=== PATIENT | female | born 1945 | race Hispanic/Latino ===

== ENCOUNTER 2022-07-12 11:47 | Inpatient (IN) | payer MEDICARE ==
[~2022-07-12] VITALS: Ht 157.5 cm; Wt 146.2 kg
[~2022-07-12 11:47] MED LIST: AMITRIPTYLINE H10 MG PO; BENICAR20 MG PO; DECONGESTANT PO; GABAPENTIN300 MG PO; GABAPENTIN300 MG/6 M PO; TRAMADOL HCL50 M1 PO; Z.0.B-12250 MCG PO; Z.0.BYSTOLIC5 MG PO; Z.0.DIOVAN80 MG PO; Z.0.VICODIN 5-5001 E PO; Z.0.ZYRTEC5 MG PO; Z.1.VITAMIN D400 UNI PO; Z.2.HYDROCODON-ACE1
[2022-07-12 13:19] LABS: BASOPHILS # (AUTO) 0.1 (0.0-0.1); BASOPHILS % 0.6 % (0.0-1.0); EOSINOPHILS # (AUTO) 0.3 (0.0-0.4); EOSINOPHILS % 3.6 % (0.0-6.0); HEMATOCRIT 36.8 % (34.2-44.1); HEMOGLOBIN 11.1 g/dL (12.0-16.0); LYMPHOCYTES # (AUTO) 1.7 (1.0-3.2); LYMPHOCYTES % 19.5 % (18.0-39.1); MEAN CORPUSCULAR HGB CONC 30.2 g/dL (31-35); MEAN CORPUSCULAR VOLUME 92.7 fL (81-99); MONOCYTES # (AUTO) 0.7 (0.2-0.8); MONOCYTES % 7.9 % (4.4-11.3); NEUTROPHILS # (AUTO) 5.9 (2.1-6.9); NEUTROPHILS % 68.1 % (38.7-80.0); PLATELET COUNT 337 x10e3/uL (140-360); RED BLOOD COUNT 3.97 x10e6/uL (3.6-5.1); RED CELL DISTRIBUTION WIDTH 15.6 % (11.7-14.4)
[2022-07-12 13:31] LABS: ALANINE AMINOTRANSFERASE 18 IU/L (0-55); ALBUMIN 3.4 g/dL (3.5-5.0); ALBUMIN/GLOBULIN RATIO 0.8 (0.8-2.0); ALKALINE PHOSPHATASE 119 IU/L (40-150); ANION GAP 13.1 mmol/L (8-16); BLOOD UREA NITROGEN 17 mg/dL (7-26); BUN/CREATININE RATIO 20 (6-25); CALCIUM 9.8 mg/dL (8.4-10.2); CARBON DIOXIDE 30 mmol/L (22-29); CHLORIDE 99 mmol/L (98-107); CREATINE KINASE 31 IU/L (29-168); CREATININE, SERUM 0.85 mg/dL (0.57-1.11); GLUCOSE 104 mg/dL (74-118); POTASSIUM 4.1 mmol/L (3.5-5.1); SODIUM 138 mmol/L (136-145)
[2022-07-12] MEDS ORDERED: HYDROXYZINE HCL 25 MG TAB PO ONE (15:00)
[2022-07-12] MEDS ORDERED: ACETAMINOPHEN 325 MG TAB PO ONE (15:00)
[2022-07-12] MEDS ORDERED: METHYLPREDNISOLONE SOD SUCC 125 MG/2ML VIAL IV ONE (15:45)
[2022-07-12] MEDS ORDERED: ALBUTEROL/IPRATROPIUM 3 ML NEB NEB ONE (15:45)
[2022-07-12] MEDS ORDERED: SODIUM CHLORIDE FLUSH 10 ML SYR INJ PRN (16:15)
[2022-07-12] MEDS ORDERED: ONDANSETRON HCL INJ 2MG/ML 2ML 2 MG/ML VIAL IV PRN (16:15)
[2022-07-12] MEDS ORDERED: ALBUTEROL/IPRATROPIUM 3 ML NEB NEB SCH (19:00)
[2022-07-12] MEDS ORDERED: MAGNESIUM SULF 1GRAM/DEXTROSE 100 ML IV ONE (19:30)
[2022-07-12] MEDS ORDERED: ASPIRIN 325 MG TAB PO ONE (19:30)
[2022-07-12] MEDS: DOXYCYCLINE HYCLATE TABLET 100 MG TAB PO SCH (19:46)
[2022-07-12 21:30] VITALS: BP 154/142
[2022-07-12] MEDS ORDERED: DIAZEPAM5 MG PO (21:43)
[2022-07-12] MEDS ORDERED: BYSTOLIC10 MG PO (21:45)
[2022-07-12] MEDS ORDERED: FLUCONAZOLE100 MG PO (21:45)
[2022-07-12] MEDS ORDERED: NIFEDIPINE ER30 M1 PO (21:46)
[2022-07-12] MEDS ORDERED: ALLOPURINOL100 MG PO (21:47)
[2022-07-12] MEDS ORDERED: ELIQUIS5 MG PO (21:48)
[2022-07-12] MEDS ORDERED: FUROSEMIDE40 MG PO (21:49)
[2022-07-12] MEDS ORDERED: LEVOTHYROXINE50 MC1 PO (21:50)
[2022-07-12] MEDS ORDERED: LYRICA100 MG PO (21:50)
[2022-07-12] MEDS ORDERED: FLONASE ALLERG9.9 ML INH (21:51)
[2022-07-12] MEDS ORDERED: KETOROLAC TROMET5 ML OP (21:54)
[2022-07-12 21:55] VITALS: BP 101/56
[2022-07-12] MEDS: MELATONIN 3 MG TAB PO SCH (22:08)
[2022-07-12 22:30] VITALS: BP 125/58
[2022-07-12 23:00] VITALS: BP_SYST 125; BP_SYST 129; BP_DIAS 64; BP_DIAS 71
[2022-07-13] VITALS (7 sets, daily range): BP systolic 105–145; BP diastolic 55–78
[2022-07-13] MEDS: LEVALBUTEROL HCL SOLN NEBU 0.63 MG/3 ML NEB INH SCH ×4 (00:55→19:40)
[2022-07-13] MEDS: IPRATROPIUM BROMIDE 0.02% 2.5 ML NEB NEB SCH ×4 (00:55→19:40)
[2022-07-13 01:41] LABS: BACTERIA,URINE FEW /HPF; CLARITY,URINE CLEAR (CLEAR); COLOR,URINE YELLOW (YELLOW); EPITHELIAL CELLS,URINE FEW /LPF; KETONES,URINE NEGATIVE (NEGATIVE); LEUKOCYTE ESTERASE ,URINE NEGATIVE (NEGATIVE); NITRITE,URINE NEGATIVE (NEGATIVE); PROTEIN,URINE DIPSTICK NEGATIVE (NEGATIVE); RBC,URINE 0-5 /HPF (0-5); URINE UROBILINOGEN 0.2 mg/dL (0.2 - 1); WBC,URINE (MAN) 0-5 /HPF (0-5)
[2022-07-13 05:22] LABS: BASOPHILS % 0.2 % (0.0-1.0); HEMATOCRIT 36.6 % (34.2-44.1); HEMOGLOBIN 10.6 g/dL (12.0-16.0); LYMPHOCYTES # (AUTO) 0.7 (1.0-3.2); LYMPHOCYTES % 10.9 % (18.0-39.1); MEAN CORPUSCULAR HEMOGLOBIN 27.7 pg (28-32); MEAN CORPUSCULAR VOLUME 95.8 fL (81-99); MONOCYTES # (AUTO) 0.1 (0.2-0.8); MONOCYTES % 1.1 % (4.4-11.3); NEUTROPHILS # (AUTO) 5.4 (2.1-6.9); NEUTROPHILS % 87.5 % (38.7-80.0); PLATELET COUNT 292 x10e3/uL (140-360); RED BLOOD COUNT 3.82 x10e6/uL (3.6-5.1)
[2022-07-13 05:52] LABS: ALBUMIN 2.9 g/dL (3.5-5.0); ALBUMIN/GLOBULIN RATIO 0.7 (0.8-2.0); ANION GAP 11.3 mmol/L (8-16); CALCIUM 9.4 mg/dL (8.4-10.2); CREATININE, SERUM 0.77 mg/dL (0.57-1.11); POTASSIUM 4.3 mmol/L (3.5-5.1)
[2022-07-13] MEDS: LEVOTHYROXINE SODIUM 50 MCG TAB PO SCH (08:05)
[2022-07-13] MEDS: ALLOPURINOL 100 MG TAB PO SCH ×2 (08:58→17:47)
[2022-07-13] MEDS: TRAMADOL HCL 50 MG TAB PO PRN ×2 (08:59→20:00)
[2022-07-13] MEDS: PREGABALIN 50 MG CAP PO SCH ×3 (08:59→20:05)
[2022-07-13] MEDS: APIXABAN 5 MG TABLET PO SCH ×2 (08:59→17:46)
[2022-07-13] MEDS: DOXYCYCLINE HYCLATE TABLET 100 MG TAB PO SCH ×2 (08:59→17:46)
[2022-07-13] MEDS: PREDNISONE 20 MG TAB PO SCH (08:59)
[2022-07-13] MEDS ORDERED: FUROSEMIDE 40 MG TAB PO SCH (09:00)
[2022-07-13] MEDS ORDERED: ASPIRIN 325 MG TAB PO ONE (09:00)
[2022-07-13] MEDS: METOPROLOL TARTRATE 25 MG TAB PO SCH ×2 (09:04→17:48)
[2022-07-13] MEDS ORDERED: MAGNESIUM SULFATE 2GM/50ML 50 ML IV ONE (10:45)
[2022-07-13] MEDS ORDERED: SODIUM CHLORIDE 0.9% 250ML 250 ML ONE ×2 (11:20→13:11)
[2022-07-13] MEDS: AMIODARONE HCL 200 MG TAB PO SCH (17:47)
[2022-07-13] MEDS: FUROSEMIDE INJ 10 MG/ML 4 ML VIAL IV SCH (17:47)
[2022-07-13] MEDS ORDERED: GUAIFENESIN/CODEINE 5 ML LIQD PO PRN (19:00)
[2022-07-13] MEDS: MELATONIN 3 MG TAB PO SCH (20:02)
[2022-07-13] MEDS: AMITRIPTYLINE HCL 25 MG TAB PO SCH (20:03)
[2022-07-14] VITALS (7 sets, daily range): BP systolic 130–149; BP diastolic 68–94
[2022-07-14] MEDS: IPRATROPIUM BROMIDE 0.02% 2.5 ML NEB NEB SCH ×4 (00:30→19:12)
[2022-07-14] MEDS: LEVALBUTEROL HCL SOLN NEBU 0.63 MG/3 ML NEB INH SCH ×4 (00:30→19:12)
[2022-07-14] MEDS: TRAMADOL HCL 50 MG TAB PO PRN ×3 (01:18→21:12)
[2022-07-14] MEDS: PREGABALIN 50 MG CAP PO SCH ×4 (01:35→21:10)
[2022-07-14] MEDS: ACETAMINOPHEN 325 MG TAB PO PRN ×2 (04:26→21:10)
[2022-07-14 07:04] LABS: BASOPHILS % 0.1 % (0.0-1.0); EOSINOPHILS % 0.1 % (0.0-6.0); HEMATOCRIT 34.1 % (34.2-44.1); LYMPHOCYTES # (AUTO) 1.6 (1.0-3.2); LYMPHOCYTES % 13.3 % (18.0-39.1); MEAN CORPUSCULAR HEMOGLOBIN 28.1 pg (28-32); MEAN CORPUSCULAR HGB CONC 29.3 g/dL (31-35); MEAN CORPUSCULAR VOLUME 95.8 fL (81-99); MONOCYTES # (AUTO) 1.3 (0.2-0.8); MONOCYTES % 11.1 % (4.4-11.3); NEUTROPHILS # (AUTO) 8.9 (2.1-6.9); NEUTROPHILS % 75.1 % (38.7-80.0); PLATELET COUNT 320 x10e3/uL (140-360); RED BLOOD COUNT 3.56 x10e6/uL (3.6-5.1)
[2022-07-14 07:31] LABS: ALBUMIN/GLOBULIN RATIO 0.7 (0.8-2.0); ANION GAP 10.9 mmol/L (8-16); CALCIUM 9.7 mg/dL (8.4-10.2); CREATININE, SERUM 0.93 mg/dL (0.57-1.11); POTASSIUM 3.9 mmol/L (3.5-5.1)
[2022-07-14] MEDS: METOPROLOL TARTRATE 25 MG TAB PO SCH ×2 (09:13→17:38)
[2022-07-14] MEDS: ALLOPURINOL 100 MG TAB PO SCH ×2 (09:13→17:37)
[2022-07-14] MEDS: APIXABAN 5 MG TABLET PO SCH ×2 (09:13→17:37)
[2022-07-14] MEDS: AMIODARONE HCL 200 MG TAB PO SCH ×2 (09:13→17:37)
[2022-07-14] MEDS: PREDNISONE 20 MG TAB PO SCH (09:13)
[2022-07-14] MEDS: DOXYCYCLINE HYCLATE TABLET 100 MG TAB PO SCH ×2 (09:13→17:37)
[2022-07-14] MEDS: FUROSEMIDE INJ 10 MG/ML 4 ML VIAL IV SCH ×2 (09:14→17:36)
[2022-07-14] MEDS: LEVOTHYROXINE SODIUM 50 MCG TAB PO SCH (09:36)
[2022-07-14] MEDS ORDERED: FUROSEMIDE INJ 10 MG/ML 4 ML VIAL IV ONE (11:45)
[2022-07-14] MEDS ORDERED: GUAIFENESIN/CODEINE 5 ML LIQD PO PRN (15:00)
[2022-07-14] MEDS: AMITRIPTYLINE HCL 25 MG TAB PO SCH (21:10)
[2022-07-14] MEDS: MELATONIN 3 MG TAB PO SCH (21:12)
[2022-07-15] VITALS (9 sets, daily range): BP systolic 114–146; BP diastolic 46–77
[2022-07-15] MEDS: LEVALBUTEROL HCL SOLN NEBU 0.63 MG/3 ML NEB INH SCH ×4 (00:40→13:27)
[2022-07-15] MEDS: IPRATROPIUM BROMIDE 0.02% 2.5 ML NEB NEB SCH ×4 (00:40→13:27)
[2022-07-15] MEDS: TRAMADOL HCL 50 MG TAB PO PRN ×2 (05:10→18:49)
[2022-07-15] MEDS: LEVOTHYROXINE SODIUM 50 MCG TAB PO SCH (08:37)
[2022-07-15] MEDS: APIXABAN 5 MG TABLET PO SCH ×2 (08:37→17:28)
[2022-07-15] MEDS: METOPROLOL TARTRATE 25 MG TAB PO SCH ×2 (08:38→17:28)
[2022-07-15] MEDS: DOXYCYCLINE HYCLATE TABLET 100 MG TAB PO SCH ×2 (08:38→17:28)
[2022-07-15] MEDS: AMIODARONE HCL 200 MG TAB PO SCH ×2 (08:38→17:28)
[2022-07-15] MEDS: PREGABALIN 50 MG CAP PO SCH ×3 (08:38→21:12)
[2022-07-15] MEDS: PREDNISONE 20 MG TAB PO SCH (08:38)
[2022-07-15] MEDS: FUROSEMIDE INJ 10 MG/ML 4 ML VIAL IV SCH ×2 (08:39→17:28)
[2022-07-15] MEDS: ALLOPURINOL 100 MG TAB PO SCH ×2 (08:41→17:28)
[2022-07-15] MEDS ORDERED: ONDANSETRON HCL 4 MG ORAL DISINTEGRATING TAB PO PRN (14:15)
[2022-07-15] MEDS: MELATONIN 3 MG TAB PO SCH (21:12)
[2022-07-15] MEDS: AMITRIPTYLINE HCL 25 MG TAB PO SCH (21:12)
[2022-07-15] MEDS: ACETAMINOPHEN 325 MG TAB PO PRN (23:30)
[2022-07-16] VITALS (7 sets, daily range): BP systolic 125–147; BP diastolic 62–91
[2022-07-16] MEDS: LEVALBUTEROL HCL SOLN NEBU 0.63 MG/3 ML NEB INH SCH ×4 (01:05→20:15)
[2022-07-16] MEDS: IPRATROPIUM BROMIDE 0.02% 2.5 ML NEB NEB SCH ×4 (01:05→20:15)
[2022-07-16 05:00] LABS: BASOPHILS % 0.2 % (0.0-1.0); EOSINOPHILS % 0.4 % (0.0-6.0); HEMATOCRIT 32.4 % (34.2-44.1); LYMPHOCYTES # (AUTO) 2.1 (1.0-3.2); LYMPHOCYTES % 19.1 % (18.0-39.1); MEAN CORPUSCULAR HEMOGLOBIN 27.9 pg (28-32); MEAN CORPUSCULAR HGB CONC 30.9 g/dL (31-35); MEAN CORPUSCULAR VOLUME 90.3 fL (81-99); MONOCYTES # (AUTO) 1.1 (0.2-0.8); MONOCYTES % 9.8 % (4.4-11.3); NEUTROPHILS # (AUTO) 7.6 (2.1-6.9); PLATELET COUNT 302 x10e3/uL (140-360); RED BLOOD COUNT 3.59 x10e6/uL (3.6-5.1); RED CELL DISTRIBUTION WIDTH 15.4 % (11.7-14.4)
[2022-07-16 05:18] LABS: ANION GAP 13.9 mmol/L (8-16); CALCIUM 9.5 mg/dL (8.4-10.2); CREATININE, SERUM 0.97 mg/dL (0.57-1.11); POTASSIUM 3.9 mmol/L (3.5-5.1)
[2022-07-16] MEDS: LEVOTHYROXINE SODIUM 50 MCG TAB PO SCH (07:30)
[2022-07-16] MEDS ORDERED: REGADENOSON 0.4 MG/5 ML SYR IV ONE (08:48)
[2022-07-16] MEDS: PREGABALIN 50 MG CAP PO SCH ×3 (09:00→22:24)
[2022-07-16] MEDS: FUROSEMIDE INJ 10 MG/ML 4 ML VIAL IV SCH ×2 (09:00→18:17)
[2022-07-16] MEDS: AMIODARONE HCL 200 MG TAB PO SCH ×2 (09:00→18:18)
[2022-07-16] MEDS: PREDNISONE 20 MG TAB PO SCH (09:00)
[2022-07-16] MEDS: APIXABAN 5 MG TABLET PO SCH ×2 (09:00→18:19)
[2022-07-16] MEDS: METOPROLOL TARTRATE 25 MG TAB PO SCH ×2 (09:00→18:18)
[2022-07-16] MEDS: ALLOPURINOL 100 MG TAB PO SCH ×2 (09:00→18:19)
[2022-07-16] MEDS: DOXYCYCLINE HYCLATE TABLET 100 MG TAB PO SCH ×2 (09:00→18:18)
[2022-07-16] MEDS: TRAMADOL HCL 50 MG TAB PO PRN ×2 (11:08→22:24)
[2022-07-16] MEDS: MELATONIN 3 MG TAB PO SCH (22:23)
[2022-07-16] MEDS: AMITRIPTYLINE HCL 25 MG TAB PO SCH (22:24)
[2022-07-17 01:42] VITALS: BP 118/59
[2022-07-17] MEDS: TRAMADOL HCL 50 MG TAB PO PRN (05:37)
[2022-07-17 05:52] VITALS: BP 130/60
[2022-07-17] MEDS: IPRATROPIUM BROMIDE 0.02% 2.5 ML NEB NEB SCH (06:43)
[2022-07-17] MEDS: LEVALBUTEROL HCL SOLN NEBU 0.63 MG/3 ML NEB INH SCH (06:43)
[2022-07-17 08:22] VITALS: BP 122/73
[2022-07-17 08:42] VITALS: BP 122/73
[2022-07-17] MEDS: FUROSEMIDE INJ 10 MG/ML 4 ML VIAL IV SCH (08:44)
[2022-07-17] MEDS: PREDNISONE 20 MG TAB PO SCH (08:44)
[2022-07-17] MEDS: AMIODARONE HCL 200 MG TAB PO SCH (08:44)
[2022-07-17] MEDS: DOXYCYCLINE HYCLATE TABLET 100 MG TAB PO SCH (08:44)
[2022-07-17] MEDS: ALLOPURINOL 100 MG TAB PO SCH (08:45)
[2022-07-17] MEDS: PREGABALIN 50 MG CAP PO SCH (08:45)
[2022-07-17] MEDS: APIXABAN 5 MG TABLET PO SCH (08:45)
[2022-07-17] MEDS: LEVOTHYROXINE SODIUM 50 MCG TAB PO SCH (08:46)
[2022-07-17] MEDS: METOPROLOL TARTRATE 25 MG TAB PO SCH (08:46)
[2022-07-17] MEDS ORDERED: AZITHROMYCIN 250 MG TAB PO SCH (09:00)
[2022-07-17] MEDS ORDERED: AMIODARONE HCL200 MG PO ×2 (09:40→09:57)
[2022-07-17] MEDS ORDERED: LOPRESSOR25 MG PO ×2 (09:40→09:57)
[2022-07-17 12:06] VITALS: BP 139/66
== END 2022-07-17 14:17 | disposition home or self-care (01) | DRG 291 ==
LOC: ER 12:11 → ERHOLD 16:14 → ICU 21:00 → MED/SURG2 07-13 10:08
PROVIDERS: ADMIT Internal Medicine; ATTEND Internal Medicine
DX: I11.0 Hypertensive heart disease with heart failure (principal); I50.33 Acute on chronic diastolic (congestive) heart failure; J96.21 Acute and chronic respiratory failure with hypoxia; E66.2 Morbid (severe) obesity with alveolar hypoventilation; Z68.43 Body mass index [BMI] 50.0-59.9, adult; J44.0 Chronic obstructive pulmonary disease with (acute) lower respiratory infection; E66.01 Morbid (severe) obesity due to excess calories; Z86.711 Personal history of pulmonary embolism; D64.9 Anemia, unspecified; Z20.822 Contact with and (suspected) exposure to COVID-19; R30.0 Dysuria; Z99.81 Dependence on supplemental oxygen; G47.33 Obstructive sleep apnea (adult) (pediatric); J20.9 Acute bronchitis, unspecified; E11.9 Type 2 diabetes mellitus without complications; M17.0 Bilateral primary osteoarthritis of knee; Z79.4 Long term (current) use of insulin
CPT/HCPCS: 0223U; 36415; 70450; 71045; 78451; 78580; 80048; 80053; 81001; 82550; 82553; 82948; 83735; 83880; 84484; 85025; 93005; 93017; 93306; 94640; 94799; 99252; 99285; A9502; A9540; J0456; J1940; J2930; J3410; J3475; J7050; J7512; Q0162

== ENCOUNTER 2022-09-30 22:34 | Inpatient (IN) | payer MEDICARE ==
[~2022-09-30] VITALS: Ht 162.6 cm; Wt 139.7 kg
[~2022-09-30 22:34] MED LIST changes: +ALLOPURINOL100 MG PO; +AMIODARONE HCL200 MG PO; +BYSTOLIC10 MG PO; +DIAZEPAM5 MG PO; +ELIQUIS5 MG PO; +FLONASE ALLERG9.9 ML INH; +FLUCONAZOLE100 MG PO; +FUROSEMIDE40 MG PO; +KETOROLAC TROMET5 ML OP; +LEVOTHYROXINE50 MC1 PO; +LOPRESSOR25 MG PO; +LYRICA100 MG PO; +NIFEDIPINE ER30 M1 PO
[2022-09-30 23:04] LABS: BASOPHILS % 0.1 % (0.0-1.0); EOSINOPHILS # (AUTO) 0.1 (0.0-0.4); EOSINOPHILS % 0.6 % (0.0-6.0); HEMATOCRIT 39.6 % (34.2-44.1); HEMOGLOBIN 12.4 g/dL (12.0-16.0); LYMPHOCYTES % 8.3 % (18.0-39.1); MEAN CORPUSCULAR HEMOGLOBIN 28.1 pg (28-32); MEAN CORPUSCULAR HGB CONC 31.3 g/dL (31-35); MEAN CORPUSCULAR VOLUME 89.8 fL (81-99); MONOCYTES # (AUTO) 0.8 (0.2-0.8); MONOCYTES % 6.5 % (4.4-11.3); NEUTROPHILS % 84.1 % (38.7-80.0); PLATELET COUNT 233 x10e3/uL (140-360); RED BLOOD COUNT 4.41 x10e6/uL (3.6-5.1); RED CELL DISTRIBUTION WIDTH 17.4 % (11.7-14.4)
[2022-09-30 23:20] LABS: CLARITY,URINE SL CLOUDY (CLEAR); COLOR,URINE AMBER (YELLOW); KETONES,URINE TRACE (NEGATIVE); LEUKOCYTE ESTERASE ,URINE NEGATIVE (NEGATIVE); NITRITE,URINE NEGATIVE (NEGATIVE); PROTEIN,URINE DIPSTICK 2+ (NEGATIVE); URINE UROBILINOGEN 0.2 mg/dL (0.2 - 1)
[2022-09-30 23:24] LABS: ALBUMIN 3.5 g/dL (3.5-5.0); ALBUMIN/GLOBULIN RATIO 0.9 (0.8-2.0); ANION GAP 16.9 mmol/L (8-16); CALCIUM 9.7 mg/dL (8.4-10.2); CREATININE, SERUM 1.08 mg/dL (0.57-1.11); POTASSIUM 4.9 mmol/L (3.5-5.1)
[2022-09-30 23:25] LABS: AMORPHOUS SEDIMENT,URINE MODERATE (FEW); BACTERIA,URINE FEW /HPF; EPITHELIAL CELLS,URINE MODERATE /LPF; RBC,URINE 0-5 /HPF (0-5); WBC,URINE (MAN) 0-5 /HPF (0-5)
[2022-09-30 23:30] LABS: CREATINE KINASE MB 2.4 ng/mL (0-5.0)
[2022-09-30] MEDS ORDERED: Morphine 4mg INJECTION 4 MG/ML INJ IV STA (23:33)
[2022-09-30] MEDS ORDERED: ONDANSETRON HCL INJ 2MG/ML 2ML 2 MG/ML VIAL IV STA (23:33)
[2022-09-30] MEDS ORDERED: SODIUM CHLORIDE 0.9% 1000ML 1,000 ML IV STA (23:33)
[2022-09-30] MEDS ORDERED: Morphine 4mg INJECTION 4 MG/ML INJ ONE (23:43)
[2022-09-30] MEDS ORDERED: SODIUM CHLORIDE 0.9% 1000ML 1,000 ML ONE (23:44)
[2022-09-30] MEDS ORDERED: ONDANSETRON HCL INJ 2MG/ML 2ML 2 MG/ML VIAL ONE (23:44)
[2022-10-01] MEDS ORDERED: DICYCLOMINE HCL 20 MG/2 ML VIAL IM ONE ×2 (00:11→00:15)
[2022-10-01] MEDS ORDERED: PROMETHAZINE 25MG/ NS 50ML (IV) IV STA (00:27)
[2022-10-01] MEDS ORDERED: PROMETHAZINE 25MG/SOD CHL 0.9% 50 ML IV ONE (00:31)
[2022-10-01] MEDS ORDERED: BENZOCAINE 20% SPR 60 ML CAN ONE (01:16)
[2022-10-01] MEDS ORDERED: PIPERACILLIN/TAZOBACTAM 3.375 GM VIAL ONE (01:32)
[2022-10-01] MEDS: SODIUM CHLORIDE 0.9% 1000ML 1,000 ML IV SCH ×4 (01:39→22:06)
[2022-10-01] MEDS ORDERED: HYDRALAZINE HCL 20 MG/ML VIAL IV PRN (02:45)
[2022-10-01] MEDS: Morphine 4mg INJECTION 4 MG/ML INJ IV PRN ×4 (04:47→18:25)
[2022-10-01] MEDS: ONDANSETRON HCL INJ 2MG/ML 2ML 2 MG/ML VIAL IV PRN ×3 (04:47→14:16)
[2022-10-01 12:00] VITALS: BP 127/93
[2022-10-01 14:33] VITALS: BP 127/93
[2022-10-01 16:00] VITALS: BP 120/58
[2022-10-01 20:00] VITALS: BP 142/65
[2022-10-01] MEDS: BISACODYL 10 MG SUPP PR SCH (21:04)
[2022-10-02] VITALS (7 sets, daily range): BP systolic 123–138; BP diastolic 59–64
[2022-10-02] MEDS: Morphine 4mg INJECTION 4 MG/ML INJ IV PRN ×2 (04:00→11:19)
[2022-10-02] MEDS: ONDANSETRON HCL INJ 2MG/ML 2ML 2 MG/ML VIAL IV PRN (04:00)
[2022-10-02 04:57] LABS: BASOPHILS % 0.2 % (0.0-1.0); EOSINOPHILS # (AUTO) 0.1 (0.0-0.4); HEMATOCRIT 33.2 % (34.2-44.1); HEMOGLOBIN 10.2 g/dL (12.0-16.0); LYMPHOCYTES % 14.4 % (18.0-39.1); MEAN CORPUSCULAR HEMOGLOBIN 28.2 pg (28-32); MEAN CORPUSCULAR HGB CONC 30.7 g/dL (31-35); MEAN CORPUSCULAR VOLUME 91.7 fL (81-99); MONOCYTES # (AUTO) 0.7 (0.2-0.8); MONOCYTES % 10.7 % (4.4-11.3); NEUTROPHILS # (AUTO) 4.8 (2.1-6.9); NEUTROPHILS % 72.2 % (38.7-80.0); PLATELET COUNT 203 x10e3/uL (140-360); RED BLOOD COUNT 3.62 x10e6/uL (3.6-5.1); RED CELL DISTRIBUTION WIDTH 17.9 % (11.7-14.4)
[2022-10-02 05:26] LABS: B-TYPE NATRIURETIC PEPTIDE2 < 10.0 pg/mL (0-100)
[2022-10-02 05:28] LABS: ALBUMIN 2.7 g/dL (3.5-5.0); ALBUMIN/GLOBULIN RATIO 0.9 (0.8-2.0); CALCIUM 8.5 mg/dL (8.4-10.2); CREATININE, SERUM 0.84 mg/dL (0.57-1.11)
[2022-10-02] MEDS: SODIUM CHLORIDE 0.9% 1000ML 1,000 ML IV SCH ×2 (06:13→15:37)
[2022-10-02] MEDS: BISACODYL 10 MG SUPP PR SCH ×2 (08:00→21:00)
[2022-10-02] MEDS ORDERED: BISACODYL 10 MG SUPP PR ONE (12:30)
[2022-10-02] MEDS: Morphine 2mg Syringe 2 MG/ML SYR IV PRN ×2 (18:33→22:51)
[2022-10-02] MEDS ORDERED: MAGNESIUM HYDROXIDE 30 ML UDC PO ONE (18:35)
[2022-10-03] VITALS (8 sets, daily range): BP systolic 127–158; BP diastolic 63–86
[2022-10-03] MEDS: Morphine 2mg Syringe 2 MG/ML SYR IV PRN ×5 (02:44→21:30)
[2022-10-03] MEDS: SODIUM CHLORIDE 0.9% 1000ML 1,000 ML IV SCH (02:45)
[2022-10-03] MEDS ORDERED: KETOROLAC TROMETHAMINE 30 MG/ML VIAL IV ONE (05:00)
[2022-10-03 05:23] LABS: BASOPHILS % 0.4 % (0.0-1.0); EOSINOPHILS # (AUTO) 0.2 (0.0-0.4); EOSINOPHILS % 2.2 % (0.0-6.0); HEMOGLOBIN 9.9 g/dL (12.0-16.0); LYMPHOCYTES # (AUTO) 1.1 (1.0-3.2); MEAN CORPUSCULAR HEMOGLOBIN 27.8 pg (28-32); MEAN CORPUSCULAR HGB CONC 29.1 g/dL (31-35); MEAN CORPUSCULAR VOLUME 95.5 fL (81-99); MONOCYTES # (AUTO) 0.6 (0.2-0.8); MONOCYTES % 7.8 % (4.4-11.3); NEUTROPHILS # (AUTO) 5.4 (2.1-6.9); NEUTROPHILS % 74.2 % (38.7-80.0); PLATELET COUNT 189 x10e3/uL (140-360); RED BLOOD COUNT 3.56 x10e6/uL (3.6-5.1)
[2022-10-03 05:46] LABS: ALBUMIN 2.7 g/dL (3.5-5.0); ALBUMIN/GLOBULIN RATIO 0.8 (0.8-2.0); ANION GAP 12.1 mmol/L (8-16); CALCIUM 8.9 mg/dL (8.4-10.2); CREATININE, SERUM 0.75 mg/dL (0.57-1.11); MAGNESIUM 1.9 MG/DL (1.3-2.1); POTASSIUM 4.1 mmol/L (3.5-5.1)
[2022-10-03] MEDS ORDERED: DEXTROSE 50% SYRINGE 50 ML IV PRN (08:45)
[2022-10-03] MEDS: DEXTROSE 5%/0.45% SOD CHL 1,000 ML IV SCH ×2 (09:25→21:36)
[2022-10-03] MEDS: BISACODYL 10 MG SUPP PR SCH (09:27)
[2022-10-03] MEDS: ACETAMINOPHEN 1000 MG/100 ML IV PRN ×2 (10:30→20:50)
[2022-10-03] MEDS: NYSTATIN 15 GM POWDER UD BTL TOP SCH ×2 (15:35→21:33)
[2022-10-04] MEDS: DEXTROSE 5%/0.45% SOD CHL 1,000 ML IV SCH ×2 (01:30→12:02)
[2022-10-04] MEDS: Morphine 2mg Syringe 2 MG/ML SYR IV PRN ×4 (01:46→16:08)
[2022-10-04 01:56] VITALS: BP 143/69
[2022-10-04 05:42] VITALS: BP 167/86
[2022-10-04 08:00] VITALS: BP 161/65
[2022-10-04 08:12] VITALS: BP 161/65
[2022-10-04] MEDS: ACETAMINOPHEN 1000 MG/100 ML IV PRN (08:45)
[2022-10-04] MEDS: ONDANSETRON HCL INJ 2MG/ML 2ML 2 MG/ML VIAL IV PRN (10:23)
[2022-10-04] MEDS ORDERED: DIAZEPAM 5 MG TAB PO PRN (10:45)
[2022-10-04] MEDS ORDERED: FLUCONAZOLE 100 MG TAB PO ONE (11:30)
[2022-10-04] MEDS: AMIODARONE HCL 200 MG TAB PO SCH ×2 (11:56→19:41)
[2022-10-04] MEDS: FUROSEMIDE 40 MG TAB PO SCH ×2 (11:57→19:41)
[2022-10-04 11:58] VITALS: BP 136/62
[2022-10-04] MEDS: APIXABAN 5 MG TABLET PO SCH ×2 (11:59→19:41)
[2022-10-04] MEDS ORDERED: PREGABALIN 50 MG CAP PO SCH (15:00)
[2022-10-04 16:04] VITALS: BP 146/50
[2022-10-04] MEDS ORDERED: ALLOPURINOL 100 MG TAB PO SCH (17:00)
[2022-10-04] MEDS ORDERED: APIXABAN 5 MG TABLET PO SCH (17:00)
[2022-10-04] MEDS ORDERED: AMIODARONE HCL 200 MG TAB PO SCH (17:00)
[2022-10-04] MEDS ORDERED: TRAMADOL HCL 50 MG TAB PO SCH (17:00)
[2022-10-04] MEDS ORDERED: METOPROLOL TARTRATE 25 MG TAB PO SCH (17:00)
[2022-10-04] MEDS ORDERED: FUROSEMIDE 40 MG TAB PO SCH (17:00)
[2022-10-04] MEDS ORDERED: DULCOLAX10 MG PR (18:32)
[2022-10-04] MEDS ORDERED: DICYCLOMINE HCL20 MG PO (18:32)
[2022-10-04] MEDS ORDERED: SENOKOT-S TABL1 EACH PO (18:32)
[2022-10-04] MEDS ORDERED: NYAMYC15 GM TOP (18:32)
[2022-10-04] MEDS ORDERED: SENNA-S TABLET PO SCH (18:45)
[2022-10-04] MEDS ORDERED: AMITRIPTYLINE HCL 25 MG TAB PO SCH (21:00)
[2022-10-05] MEDS ORDERED: LEVOTHYROXINE SODIUM 50 MCG TAB PO SCH (06:00)
[2022-10-05] MEDS ORDERED: OLMESARTAN 20 MG TAB PO SCH (09:00)
== END 2022-10-04 20:45 | disposition home or self-care (01) | DRG 388 ==
LOC: ER 22:47 → ERHOLD 10-01 01:13 → MED/SURG3 10-01 13:12
PROVIDERS: ADMIT Internal Medicine; ATTEND Internal Medicine
PROC: 8E0ZXY6 Isolation (ICD-10-PCS; principal; 2022-10-01)
PROC: 0D9670Z Drainage of Stomach with Drainage Device, Via Natural or Artificial Opening (ICD-10-PCS; 2022-10-01)
DX: K56.609 Unspecified intestinal obstruction, unspecified as to partial versus complete obstruction (principal); U07.1 COVID-19; Z68.43 Body mass index [BMI] 50.0-59.9, adult; I50.32 Chronic diastolic (congestive) heart failure; J96.11 Chronic respiratory failure with hypoxia; E66.2 Morbid (severe) obesity with alveolar hypoventilation; E11.9 Type 2 diabetes mellitus without complications; I11.0 Hypertensive heart disease with heart failure; I25.10 Atherosclerotic heart disease of native coronary artery without angina pectoris; D64.9 Anemia, unspecified; F41.9 Anxiety disorder, unspecified; R00.0 Tachycardia, unspecified; N28.89 Other specified disorders of kidney and ureter; K57.30 Diverticulosis of large intestine without perforation or abscess without bleeding; J43.9 Emphysema, unspecified; K46.9 Unspecified abdominal hernia without obstruction or gangrene; K21.9 Gastro-esophageal reflux disease without esophagitis; Z90.49 Acquired absence of other specified parts of digestive tract; Z99.81 Dependence on supplemental oxygen; Z85.828 Personal history of other malignant neoplasm of skin
CPT/HCPCS: 36415; 71045; 74018; 74019; 74022; 74176; 80053; 81001; 82550; 82553; 82948; 83036; 83690; 83735; 83880; 84443; 84484; 85025; 93005; 94799; 96360; 96361; 99284; J1885; J2270; J2405; J2543; J2550; J7030; J7799

== ENCOUNTER 2022-10-16 05:19 | Observation (INO) | payer MEDICARE ==
[~2022-10-16] VITALS: Ht 162.6 cm; Wt 140.0 kg
[~2022-10-16 05:19] MED LIST changes: +DICYCLOMINE HCL20 MG PO; +DULCOLAX10 MG PR; +NYAMYC15 GM TOP; +SENOKOT-S TABL1 EACH PO
[2022-10-16] MEDS ORDERED: SODIUM CHLORIDE 0.9% 1000ML 1,000 ML IV STA (05:21)
[2022-10-16] MEDS ORDERED: ACETAMINOPHEN 325 MG TAB PO STA (05:21)
[2022-10-16 05:56] LABS: BASOPHILS % 0.3 % (0.0-1.0); EOSINOPHILS # (AUTO) 0.4 (0.0-0.4); EOSINOPHILS % 6.5 % (0.0-6.0); HEMOGLOBIN 10.7 g/dL (12.0-16.0); LYMPHOCYTES # (AUTO) 1.8 (1.0-3.2); LYMPHOCYTES % 27.8 % (18.0-39.1); MEAN CORPUSCULAR HEMOGLOBIN 28.5 pg (28-32); MEAN CORPUSCULAR HGB CONC 29.7 g/dL (31-35); MEAN CORPUSCULAR VOLUME 95.7 fL (81-99); MONOCYTES # (AUTO) 0.6 (0.2-0.8); MONOCYTES % 9.5 % (4.4-11.3); NEUTROPHILS # (AUTO) 3.5 (2.1-6.9); NEUTROPHILS % 55.7 % (38.7-80.0); PLATELET COUNT 263 x10e3/uL (140-360); RED BLOOD COUNT 3.76 x10e6/uL (3.6-5.1); RED CELL DISTRIBUTION WIDTH 18.6 % (11.7-14.4)
[2022-10-16 06:18] LABS: ALBUMIN 3.1 g/dL (3.5-5.0); ALBUMIN/GLOBULIN RATIO 0.8 (0.8-2.0); ANION GAP 13.8 mmol/L (8-16); CREATININE, SERUM 0.91 mg/dL (0.57-1.11); POTASSIUM 4.8 mmol/L (3.5-5.1)
[2022-10-16 06:24] LABS: CREATINE KINASE MB 0.7 ng/mL (0-5.0)
[2022-10-16 06:40] LABS: CLARITY,URINE CLEAR (CLEAR); COLOR,URINE YELLOW (YELLOW); KETONES,URINE NEGATIVE (NEGATIVE); LEUKOCYTE ESTERASE ,URINE NEGATIVE (NEGATIVE); NITRITE,URINE NEGATIVE (NEGATIVE); PROTEIN,URINE DIPSTICK 1+ (NEGATIVE); URINE UROBILINOGEN 0.2 mg/dL (0.2 - 1)
[2022-10-16 06:43] LABS: BACTERIA,URINE FEW /HPF; EPITHELIAL CELLS,URINE FEW /LPF; RBC,URINE 0-5 /HPF (0-5); WBC,URINE (MAN) 0-5 /HPF (0-5)
[2022-10-16] MEDS: Vancomycin IV 1 GM in SODIUM CHLORIDE 0.9% 250ML 250 ML IV SCH ×2 (06:56→18:23)
[2022-10-16] MEDS ORDERED: ONDANSETRON HCL INJ 2MG/ML 2ML 2 MG/ML VIAL IV PRN (07:15)
[2022-10-16] MEDS ORDERED: DEXTROSE 50% SYRINGE 50 ML IV PRN (08:15)
[2022-10-16] MEDS: SENNOSIDES 8.6 MG TAB PO SCH (09:04)
[2022-10-16] MEDS: DOCUSATE SODIUM 100 MG CAP PO SCH (09:05)
[2022-10-16] MEDS: APIXABAN 5 MG TABLET PO SCH ×2 (09:05→17:19)
[2022-10-16 09:55] VITALS: PULSE 91; RESP 26; O2SAT 99
[2022-10-16] MEDS: INSULIN LISPRO 100 UNIT/1 ML 3ML VIAL SQ SCH ×3 (11:30→19:54)
[2022-10-16 12:01] LABS: CREATINE KINASE MB 0.6 ng/mL (0-5.0)
[2022-10-16 16:00] VITALS: BP 136/116; PULSE 93; RESP 20; TEMP 98.4; O2SAT 91
[2022-10-16 16:15] VITALS: BP 136/116; PULSE 93; RESP 20; TEMP 98.4; O2SAT 91
[2022-10-16 16:30] VITALS: BP 136/116; PULSE 93; RESP 20; TEMP 98.4; O2SAT 93
[2022-10-16] MEDS ORDERED: ENOXAPARIN SOD INJ 40 MG/0.4 ML SYR SC SCH (17:00)
[2022-10-16] MEDS ORDERED: SODIUM CHLORIDE 0.9% 250ML 250 ML ONE (17:16)
[2022-10-16] MEDS: TRIAMCINOLONE 0.1% OINTMENT 15 GM TUBE TP SCH (18:00)
[2022-10-16 18:40] LABS: CREATINE KINASE MB 0.6 ng/mL (0-5.0)
[2022-10-16 20:00] VITALS: BP 130/34; PULSE 97; RESP 16; TEMP 97.9; O2SAT 100
[2022-10-16 21:30] VITALS: BP 130/34; PULSE 97; RESP 16; TEMP 97.9; O2SAT 100
[2022-10-16] MEDS: ACETAMINOPHEN 325 MG TAB PO PRN (21:32)
[2022-10-17] MEDS ORDERED: DIAZEPAM 5 MG TAB PO PRN
[2022-10-17] MEDS ORDERED: HYDRALAZINE HCL 20 MG/ML VIAL IV PRN
[2022-10-17 00:57] VITALS: BP 135/53; PULSE 87; RESP 20; TEMP 97; O2SAT 100
[2022-10-17] MEDS ORDERED: ULTRAM 50MG50 MG PO ×2 (04:47→04:48)
[2022-10-17 04:57] LABS: BASOPHILS % 0.7 % (0.0-1.0); EOSINOPHILS # (AUTO) 0.2 (0.0-0.4); EOSINOPHILS % 5.1 % (0.0-6.0); HEMATOCRIT 31.3 % (34.2-44.1); HEMOGLOBIN 9.4 g/dL (12.0-16.0); LYMPHOCYTES # (AUTO) 0.7 (1.0-3.2); LYMPHOCYTES % 14.8 % (18.0-39.1); MEAN CORPUSCULAR HEMOGLOBIN 28.5 pg (28-32); MEAN CORPUSCULAR VOLUME 94.8 fL (81-99); MONOCYTES # (AUTO) 0.4 (0.2-0.8); MONOCYTES % 9.6 % (4.4-11.3); NEUTROPHILS # (AUTO) 3.1 (2.1-6.9); NEUTROPHILS % 69.6 % (38.7-80.0); PLATELET COUNT 224 x10e3/uL (140-360); RED CELL DISTRIBUTION WIDTH 18.3 % (11.7-14.4)
[2022-10-17] MEDS ORDERED: TRAMADOL HCL 50 MG TAB PO PRN (05:00)
[2022-10-17 05:20] LABS: ALBUMIN 2.6 g/dL (3.5-5.0); ALBUMIN/GLOBULIN RATIO 0.9 (0.8-2.0); ANION GAP 10.1 mmol/L (8-16); CALCIUM 8.9 mg/dL (8.4-10.2); CREATININE, SERUM 0.74 mg/dL (0.57-1.11); POTASSIUM 4.1 mmol/L (3.5-5.1)
[2022-10-17 05:28] VITALS: BP 143/55; PULSE 83; RESP 20; TEMP 97.1; O2SAT 100
[2022-10-17 05:49] LABS: CREATINE KINASE MB 0.5 ng/mL (0-5.0)
[2022-10-17] MEDS ORDERED: TRAMADOL HCL 50 MG TAB PO SCH (06:00)
[2022-10-17] MEDS: Vancomycin IV 1 GM in SODIUM CHLORIDE 0.9% 250ML 250 ML IV SCH (06:34)
[2022-10-17] MEDS: INSULIN LISPRO 100 UNIT/1 ML 3ML VIAL SQ SCH ×2 (07:21→11:30)
[2022-10-17] MEDS ORDERED: ONDANSETRON HCL 4 MG ORAL DISINTEGRATING TAB PO PRN (08:15)
[2022-10-17 08:50] VITALS: BP 145/72; PULSE 94; RESP 20; TEMP 98.3; O2SAT 95
[2022-10-17] MEDS ORDERED: BALSAM PERU/CASTOR OIL 60 GM OINT...G. TP SCH (09:00)
[2022-10-17 09:46] VITALS: BP 145/72; PULSE 94; RESP 20; TEMP 98.3; O2SAT 95
[2022-10-17] MEDS: SENNOSIDES 8.6 MG TAB PO SCH (10:00)
[2022-10-17] MEDS: APIXABAN 5 MG TABLET PO SCH (10:00)
[2022-10-17] MEDS: DOCUSATE SODIUM 100 MG CAP PO SCH (10:00)
[2022-10-17] MEDS: TRIAMCINOLONE 0.1% OINTMENT 15 GM TUBE TP SCH (10:01)
[2022-10-17] MEDS: ACETAMINOPHEN 325 MG TAB PO PRN (10:01)
[2022-10-17 12:54] VITALS: BP 160/78; PULSE 93; RESP 20; TEMP 98; O2SAT 94
[2022-10-17] MEDS ORDERED: AMOX TR-K CLV1 EAC2 PO (12:59)
[2022-10-17] MEDS ORDERED: AZITHROMYCIN250 MG PO (12:59)
== END 2022-10-17 13:46 | disposition home or self-care (01) ==
LOC: ER 05:24 → INTOOBSV 07:20 → ERHOLD 07:20 → MED/SURG2 15:40
PROVIDERS: ADMIT Internal Medicine; ATTEND Internal Medicine
DX: J96.21 Acute and chronic respiratory failure with hypoxia (principal); L03.116 Cellulitis of left lower limb; L03.115 Cellulitis of right lower limb; I11.0 Hypertensive heart disease with heart failure; I50.32 Chronic diastolic (congestive) heart failure; Z99.81 Dependence on supplemental oxygen; E11.9 Type 2 diabetes mellitus without complications; Z79.4 Long term (current) use of insulin; E66.01 Morbid (severe) obesity due to excess calories; Z68.43 Body mass index [BMI] 50.0-59.9, adult; F41.1 Generalized anxiety disorder; Z11.52 Encounter for screening for COVID-19; Z79.899 Other long term (current) drug therapy; Z79.01 Long term (current) use of anticoagulants
CPT/HCPCS: 36415 ×2; 51700; 70450; 71045 ×2; 74176; 80053 ×2; 81001; 82140; 82550 ×2; 82553 ×2; 82948 ×2; 83605; 83880; 84443; 84484 ×2; 85025 ×2; 85379; 87040; 87400; 93005; 93970; 94799; 99252; 99285; G0378 ×2; J2543 ×2; J3370 ×2; J7030; J7050 ×2; U0002